=== PATIENT | male | born 1975 | race Caucasian/White ===

== ENCOUNTER 2021-10-05 17:33 | Emergency (ER) | payer SELFPAY ==
[2021-10-05] MEDS ORDERED: ERYTHROMYCIN OP1 GM OP (22:43)
== END 2021-10-05 23:45 | disposition home or self-care (01) ==
LOC: ER1 17:33
DX: S05.01XA Injury of conjunctiva and corneal abrasion without foreign body, right eye, initial encounter (principal); E78.5 Hyperlipidemia, unspecified; I51.9 Heart disease, unspecified; X58.XXXA Exposure to other specified factors, initial encounter; Y92.009 Unspecified place in unspecified non-institutional (private) residence as the place of occurrence of the external cause
CPT/HCPCS: 70480; 99284